=== PATIENT | male | born 1995 | race Caucasian/White ===

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

== ENCOUNTER → 2017-05-13 | Outpatient (REF) | payer OTHER | LOC: M SFHCPLAZ 14:01 | PROVIDERS: ATTEND Physician Assistant | DX: J03.80 Acute tonsillitis due to other specified organisms (principal) ==

== ENCOUNTER 2019-08-05 17:18 | Emergency (ER) | payer OTHER, SELFPAY ==
[~2019-08-05] VITALS: Ht 167.6 cm; Wt 94.2 kg
[2019-08-05 17:19] VITALS: BP 140/92
--- NOTE | 2019-08-05 18:50 | REPVR ---
PROCEDURE INFORMATION: Exam: US Scrotum Exam date and time: 08/05/2019 6:21 PM Age: 24 years old Clinical history: Scrotum pain; Additional info: With duplex pls, bilat scrotal ache, superior swelling TECHNIQUE: Imaging protocol: Real-time ultrasound of the scrotum and contents with color Doppler and image documentation. COMPARISON: [facility] US 09/14/2015 2:10 PM FINDINGS: Right testicle: Normal. No mass. No torsion. Normal vascular flow. Normal resistive index of 0.69. Left testicle: Normal. No mass. No torsion. Normal vascular flow. Normal resistive index of 0.67. Epididymides: Both epididymides contain tiny anechoic cysts measuring up to 1 mm in the right epididymis and up to 2 mm in diameter in the left epididymis. Scrotum: Small bilateral hydroceles are present. IMPRESSION: 1. Normal bilateral testicles. No evidence of testicular torsion. 2. Tiny cysts are noted in both epididymides. 3. Small bilateral hydroceles are present. Electronically signed by: Ron Villalta On 08/05/2019 18:49:59 PM
[2019-08-05 19:48] LABS: CHLAMYDIA DNA AMPLIFICATION NEGATIVE (NEGATIVE); GC DNA AMPLIFICATION NEGATIVE (NEGATIVE)
[2019-08-05] MEDS ORDERED: MUPI2OI TOP (19:57)
[2019-08-05] MEDS ORDERED: IBUPROFEN 600 MG TAB PO ONE (20:00)
== END 2019-08-05 20:16 | disposition home or self-care (01) ==
LOC: M ED 17:18
DX: N43.3 Hydrocele, unspecified (principal); N50.3 Cyst of epididymis; Z79.899 Other long term (current) drug therapy

== ENCOUNTER 2020-03-09 15:05 | Emergency (ER) | payer OTHER, SELFPAY ==
[~2020-03-09] VITALS: Ht 167.6 cm; Wt 97.9 kg
[~2020-03-09 15:05] MED LIST: MUPI2OI TOP
[2020-03-09] MEDS ORDERED: PROP10TA56 (15:11)
[2020-03-09] MEDS ORDERED: SUMA25TA3 (15:11)
[2020-03-09] MEDS ORDERED: ACETAMINOPHEN 500 MG TAB PO ONE (16:45)
[2020-03-09] MEDS ORDERED: NS 1,000 ML IV ONE (16:45)
[2020-03-09] MEDS ORDERED: KETOROLAC 30 MG/ML 1ML VIAL IM ONE (16:45)
[2020-03-09] MEDS ORDERED: ONDANSETRON 4MG/2ML VIAL IV ONE (16:45)
[2020-03-09] MEDS ORDERED: diphenhydrAMINE 50MG/ML VIAL (J1200) IV ONE (16:45)
[2020-03-09] MEDS ORDERED: KETOROLAC 30 MG/ML 1ML VIAL IV ONE (17:00)
[2020-03-09 17:57] VITALS: BP 117/61
== END 2020-03-09 18:47 | disposition home or self-care (01) ==
LOC: M ED 15:05
DX: R51 Headache (principal)
CPT/HCPCS: 96361; 96374; 99284; J1200; J1885; J2405

== ENCOUNTER → 2020-06-08 | Outpatient (REF) | payer OTHER ==
[~2020-06-08] MED LIST changes: +PROP10TA56; +SUMA25TA3
[2020-06-08 16:11] LABS: FREE T4 1.1 NG/DL (0.76-1.46); THYROID STIMULATING HORMONE 0.784 uIU/ML (0.358-3.740)
== END ==
LOC: M SFHCPLAZ 13:44
PROVIDERS: ATTEND Nurse Practitioner Family
DX: Z13.228 Encounter for screening for other metabolic disorders (principal)

== ENCOUNTER → 2023-07-29 | Outpatient (REF) | payer OTHER ==
[2023-07-29 13:48] LABS: BASO % 0.4 % (0.0-1.0); EOS # 0.4 10^3/uL (0.0-0.5); EOS % 3.8 % (0.0-3.0); HEMATOCRIT 45.7 % (42.0-52.0); HEMOGLOBIN 15.6 g/dl (13.5-17.5); LYMPH # 2.3 10^3/uL (1.5-5.0); LYMPH % 23.8 % (24.0-44.0); MEAN CORPUSCULAR HEMOGLOBIN 30.7 pg (27.0-33.0); MEAN CORPUSCULAR HGB CONC 34.1 g/dl (32.0-36.5); MONO # 0.9 10^3/uL (0.0-0.8); MONO % 9.7 % (2.0-8.0); PLATELET COUNT, AUTOMATED 342 10^3/uL (150-450); RED BLOOD COUNT 5.08 10^6/uL (4.30-6.10); WHITE BLOOD COUNT 9.6 10^3/uL (4.0-10.0)
[2023-07-29 14:19] LABS: ALKALINE PHOSPHATASE 104 U/L (46-116); ALT/SGPT 41 U/L (7.0-40); AST/SGOT 16 U/L (<34); BILIRUBIN,TOTAL 0.3 MG/DL (0.3-1.2); BLOOD UREA NITROGEN 8 MG/DL (9-23); CALCIUM LEVEL 9.3 MG/DL (8.5-10.1); CARBON DIOXIDE LEVEL 26 MMOL/L (20-31); CHLORIDE LEVEL 108 MMOL/L (98-107); CHOLESTEROL LEVEL 200 MG/DL (<200); CHOLESTEROL RISK RATIO 4.85 (<5); CREATININE FOR GFR 0.71 MG/DL (0.70-1.30); GLOMERULAR FILTRATION RATE > 60.0 (>60); GLUCOSE, FASTING 100 MG/DL (60-100); HDL CHOLESTEROL 41.2 MG/DL (>40); HEMOGLOBIN A1c 4.9 % (4.0-6.0); LDL CHOLESTEROL 123.4 MG/DL (<100); NON-HDL-C 158.8 MG/DL; POTASSIUM SERUM 4.9 MMOL/L (3.5-5.1); SODIUM LEVEL 142 MMOL/L (136-145); TOTAL PROTEIN 7.1 G/DL (5.7-8.2); TRIGLYCERIDES LEVEL 177 MG/DL (<150)
== END ==
LOC: M SFHCPLAZ 12:43
PROVIDERS: ATTEND Physician Assistant Medical
DX: Z13.220 Encounter for screening for lipoid disorders (principal); Z12.5 Encounter for screening for malignant neoplasm of prostate; K21.9 Gastro-esophageal reflux disease without esophagitis; E66.9 Obesity, unspecified

== ENCOUNTER → 2023-09-09 | Outpatient (CLI) | payer OTHER | LOC: M SLEEP HO 11:14 | PROVIDERS: ATTEND Physician Assistant Medical | DX: R40.0 Somnolence (principal) ==

== ENCOUNTER → 2025-03-24 | Outpatient (CLI) | payer OTHER | LOC: M SOG 06:50 | PROVIDERS: ATTEND Physician Assistant | DX: M79.644 Pain in right finger(s) (principal) ==